=== PATIENT | female | born 2000 | race Caucasian/White ===

== ENCOUNTER 2022-03-23 15:46 | Emergency (ER) | payer BC, SELFPAY ==
[2022-03-23 15:47] VITALS: BP 125/75; PULSE 80; RESP 15; TEMP 37; O2SAT 98; BMI 22.8
--- NOTE | 2022-03-23 16:14 | EDS_ITS ---
HPI History of Present Illness Chief Complaint: Bite Narrative Narrative: 21-year-old female medical problems presenting with concern for possible rabies. She states she found out she was living with a bathroom for the last 6 days. She just found out about it today. She is not had any bites from that. She has not contacted the bat. She has no symptoms of rabies. She states that one of her friends dads is a doctor and told her to come get the rabies vaccine [facility] Allergy/AdvReac Type Severity Reaction Status Date / Time No Known Allergies Allergy Verified 03/23/22 15:47 ROS ROS ED Constitutional Constitutional ED: Denies chills or fever(s) Eyes Eyes: Denies blurry vision or change in vision ENT ENT ED: Denies ear pain or sore throat Cardiovascular Cardiovascular: Denies chest pain, palpitations or racing heartbeat Respiratory/Chest Respiratory/Chest: Denies cough, dyspnea or sputum Gastrointestinal Gastrointestinal: Denies abdominal pain, constipation, diarrhea, nausea or vomiting Genitourinary Genitourinary ED: Denies dysuria, hematuria or urinary frequency Musculoskeletal Musculoskeletal: Denies arthralgias, myalgias or neck pain Integumentary Denies abscess, Abrasions or rash Neurologic Neurologic: Denies headache(s), paresthesias or weakness Psychiatric Psychiatric: Denies anxiety, depression, suicidal ideation or suicidal thoughts Endocrine Endocrinology: Denies polydipsia or polyuria EXAM Physical Exam Const Vital Signs: 03/23/22 15:47 Temperature 98.6 F Temperature Source Temporal Pulse Rate 80 Respiratory Rate 15 Blood Pressure 125/75 H Blood Pressure Mean 91 Pulse Ox 98 Oxygen Delivery Method Room Air Positive well nourished General Appearance ED: NAD; Negative for pallor HEENT Reports moist mucous membranes Eyes PERRL and EOMs intact bilaterally Neck no lymphadenopathy Resp normal respiratory effort and clear to auscultation bilaterally Cardio regular rate and regular rhythm GI normal to inspection, nondistended, normoactive bowel sounds Extremity normal to inspection Neuro oriented x3 and CN's II-XII intact bilaterally Sensorium / Orientation: alert Psych mental status grossly normal Skin no rashes or lesions noted General Skin Exam: Negative for jaundice or pallor MDM MDM MDM Narrative Medical decision making narrative: Patient presenting with bat exposure. She has had no contact directly. She has no wounds. She requests rabies vaccination. She is given rabies immunoglobulin and rabies vaccine today. She will be given instructions for follow-up. Impression: 1. Bat exposure Lab Data Attestation: I reviewed the patient's lab results. Discharge Plan Triage Chief Complaint: Bite ED Provider: Soy Paul Dx/Rx/DC Orders Primary Care Provider: Luz Elena Orellana,Out of Referrals: Luz Elena Orellana,Out of [Primary Care Provider] -
[2022-03-23] MEDS: Rabies Immune Globulin/PF 300 UNIT/ML, 5 ML VIAL 1240 UNIT IM (16:58)
[2022-03-23] MEDS: Rabies Vaccine,Human Diploid 2.5 UNITS Vial IM (17:01)
[2022-03-23 17:08] VITALS: BP 124/78; PULSE 76; RESP 17; O2SAT 99
== END 2022-03-23 17:13 | disposition home or self-care (01) ==
LOC: ED 16:19
PROVIDERS: Emergency Provider Student in an Organized Health Care Education/Training Program; Visit Provider Student in an Organized Health Care Education/Training Program
DX: Z23 Encounter for immunization (principal)
CPT/HCPCS: 90375; 90675; 99282

== ENCOUNTER 2022-03-26 16:38 | Outpatient (CLI) | payer BC, SELFPAY ==
[2022-03-26 17:39] VITALS: BP 113/65; PULSE 97; RESP 15; TEMP 36.1; O2SAT 98; BMI 22.8
[2022-03-26] MEDS: Rabies Vaccine,Human Diploid 2.5 UNITS Vial IM (17:39)
== END 2022-03-26 17:50 | disposition home or self-care (01) ==
LOC: ED 17:50
DX: Z23 Encounter for immunization (principal)
CPT/HCPCS: 90675; 96372

== ENCOUNTER 2022-03-30 17:28 | Outpatient (CLI) | payer BC, SELFPAY ==
[2022-03-30 17:28] VITALS: BP 115/78; PULSE 78; RESP 16; TEMP 36.6; O2SAT 97; BMI 22.8
[2022-03-30 18:50] VITALS: BP 125/75; PULSE 78; RESP 16; O2SAT 98
[2022-03-30] MEDS: Rabies Vaccine,Human Diploid 2.5 UNITS Vial IM (18:50)
== END 2022-03-30 20:09 | disposition home or self-care (01) ==
DX: Z23 Encounter for immunization (principal)
CPT/HCPCS: 90675; 96372

== ENCOUNTER 2023-02-09 21:34 | Emergency (ER) | payer BC, SELFPAY ==
[2023-02-09 21:34] VITALS: BP 140/61; PULSE 93; RESP 16; TEMP 36.4; O2SAT 98
--- NOTE | 2023-02-09 21:42 | EDS_ITS ---
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 She is a [employer] student. At practice today she stepped on another player's stick, her ankle rolled out and her knee buckled medially. She complains of pain on the medial aspect of her right knee. She presents on crutches and states she has not been able to bear weight. She denies any history of prior knee injury. PFSH PFSH Medical History no medical history no medical history Home Medications norgestimate 0.25 mg-ethinyl estradiol 35 mcg tablet 1 tab PO DAILY 02/09/23 [History Last Taken Unknown] Allergy/AdvReac Type Severity Reaction Status Date / Time No Known Allergies Allergy Verified 02/09/23 21:34 Family History no significant family his Surgical History no surgical history Social History housing: other Smoking Status: Never smoker ROS ROS ED Constitutional Constitutional ED: Denies chills or fever(s) ENT ENT ED: Denies rhinorrhea or sore throat Cardiovascular Cardiovascular: Denies chest pain Respiratory/Chest Respiratory/Chest: Denies dyspnea Gastrointestinal Gastrointestinal: Denies abdominal pain Musculoskeletal Musculoskeletal: Reports extremity pain; Denies back pain Integumentary Denies Abrasions or rash Neurologic Neurologic: Denies headache(s) or weakness Psychiatric Psychiatric: Denies anxiety or depression Allergic/Immunologic Allergic/Immunologic ED: Denies lip swelling or urticaria EXAM Physical Exam Const Vital Signs: 02/09/23 21:34 Temperature 97.5 F L Temperature Source Temporal Pulse Rate 93 Respiratory Rate 16 Blood Pressure 140/61 H Blood Pressure Mean 87 Pulse Ox 98 Positive well nourished and well developed General Appearance ED: well developed HEENT Reports moist mucous membranes Neck full ROM Chest Wall inspection of chest normal and palpation of chest normal Resp normal respiratory effort and clear to auscultation bilaterally Cardio regular rate and regular rhythm GI non-tender and non-distended Extremity Extremity Narrative: Tenderness to palpation along the medial aspect of the right knee along the MCL. Significant edema noted. No tenderness over the calf or thigh muscles. She does have pain with valgus stress. Neuro oriented x3 and no sensory deficits noted Skin no wounds MDM MDM MDM Narrative Medical decision making narrative: Patient declines anything for pain at this time. Right knee x-rays obtained to evaluate for bony injury. Radiography Diagnostic Testing: Clinical Impression(s) from Imaging Studies Knee X-Ray 02/09/23 21:54 IMPRESSION: Normal x-ray examination of the knee. Electronically Signed: Yinka Lemos MD at 22:14 EDT , Treatment and Re-Evaluation Narrative: Right knee x-ray per my interpretation reveals no obvious bony abnormality. Radiology interpretation is reviewed and agrees. Test results discussed with the patient. She has crutches from the school that she will continue to use. Sergio wrap will be applied to her knee. She declines any prescriptions for pain medication and will continue Tylenol or ibuprofen as needed. She is referred to Dr. See, on-call for orthopedics. She will also speak with her trainers at the school to see if they work with any specific orthopedist. Discharge Plan Triage Chief Complaint: Lower Extremity Injury ED Provider: Catrina Conley Dx/Rx/DC Orders Clinical Impression: MCL sprain of right knee Instructions: ED Knee Sprain Prescriptions: No Action norgestimate-ethinyl estradiol 0.25-35 mg-mcg tablet 1 tab PO DAILY Primary Care Provider: Care Physician,No Primary Referrals: Alberto Maurer MD [Med Staff - Active Staff] - 3-[address] [facility] Doctor,Out of [Non-Staff] - Disposition Disposition: Home, Self Care
--- NOTE | 2023-02-09 21:54 | RAD_ITS ---
STUDY: X-RAY - RIGHT KNEE REASON FOR EXAM: Female, 22 years old. injury TECHNIQUE: 4 view(s) of the knee. COMPARISON: None. FINDINGS: Normal visualized distal femur. Normal visualized proximal tibia and fibula. Normal proximal tibiofibular articulation. Normal medial femorotibial compartment. Normal lateral femorotibial compartment. Normal patellofemoral articulation. The soft tissue structures are unremarkable. RAD/Knee 4 or More Views IMPRESSION: Normal x-ray examination of the knee. Electronically Signed: Yinka Lemos MD at 22:14 EDT ,
[2023-02-09 22:56] VITALS: RESP 16
== END 2023-02-09 22:57 | disposition home or self-care (01) ==
PROVIDERS: Emergency Provider Emergency Medicine; Visit Provider Emergency Medicine
DX: S83.411A Sprain of medial collateral ligament of right knee, initial encounter (principal); W22.8XXA Striking against or struck by other objects, initial encounter; Y93.65 Activity, lacrosse and field hockey; Y99.8 Other external cause status; Y92.328 Other athletic field as the place of occurrence of the external cause
CPT/HCPCS: 73564; 99282